=== PATIENT | female | born 1995 | race Two or more races ===

== ENCOUNTER 2017-04-18 19:13 | Emergency (ER) | payer SELFPAY ==
[~2017-04-18] VITALS: Ht 160 cm; Wt 70.0 kg
[2017-04-18] MEDS ORDERED: MORPHINE SULFATE 4 MG/ML, 1ML ONE ×2 (19:51→20:24)
[2017-04-18] MEDS ORDERED: ONDANSETRON 2MG/ML, 2ML ONE (19:51)
[2017-04-18] MEDS: MORPHINE SULFATE 4 MG/ML, 1ML IVPush PRN ×2 (20:00→20:25)
[2017-04-18] MEDS ORDERED: SODIUM CHLORIDE 0.9% 1,000ML IV ONE (20:00)
[2017-04-18] MEDS ORDERED: ONDANSETRON 2MG/ML, 2ML IVPush ONE (20:00)
[2017-04-18] MEDS ORDERED: SODIUM CHLORIDE FLUSH 10ML SYR IVF ONE (20:00)
[2017-04-18 20:08] LABS: BLOOD UREA NITROGEN 14 mg/dL (7-18)
[2017-04-18] MEDS ORDERED: LAMO200T PO (20:13)
[2017-04-18] MEDS ORDERED: DULO30CA2 PO (20:13)
[2017-04-18] MEDS ORDERED: SUMA25TA4 PO (20:13)
[2017-04-18] MEDS ORDERED: PROM25TA10 PO (20:13)
[2017-04-18] MEDS ORDERED: METOCLOPRAMIDE 5 MG/ML, 2ML ONE (20:18)
[2017-04-18] MEDS ORDERED: CEFTRIAXONE 1,000 MG in SODIUM CHLORIDE 0.9% 50 ML IV ONE (20:30)
[2017-04-18] MEDS ORDERED: METOCLOPRAMIDE 5 MG/ML, 2ML IVPush ONE (20:30)
[2017-04-18] MEDS ORDERED: CEFTRIAXONE PMX 1GM/50ML 50 ML ONE (20:32)
[2017-04-18 21:16] VITALS: BP 101/51
== END 2017-04-18 21:19 | disposition home or self-care (01) ==
LOC: ED 21:00
DX: N10 Acute pyelonephritis (principal); D72.829 Elevated white blood cell count, unspecified
CPT/HCPCS: 36415; 74176; 80048; 81001; 82040; 84703; 85025; 87086; 96361; 96365; 96375; 99285; J0696; J2405; J2765; J7030